=== PATIENT | male | born 1995 | race Caucasian/White ===

== ENCOUNTER 2025-02-18 19:24 | Emergency (ER) | payer SELFPAY ==
[2025-02-18] MEDS ORDERED: Ketorolac Tromethamine 30 MG (1 mL) VIAL ONE (20:14)
[2025-02-18] MEDS ORDERED: Lidocaine 1% w/Epinephrine 1:200K 30 ML VIAL ONE (20:15)
[2025-02-18] MEDS ORDERED: Boostrix 0.5 ML (Tdap) VIAL (>/=7 yrs of age) ONE (20:15)
== END 2025-02-18 20:38 | disposition home or self-care (01) ==
LOC: CSHERS 19:24
DX: L05.01 Pilonidal cyst with abscess (principal)
CPT/HCPCS: 10080; 90715; 96372; J1885